=== PATIENT | female | born 1935 | race Caucasian/White ===

== ENCOUNTER 2022-03-19 11:20 | Outpatient (CLI) | payer MEDICARE | END 2022-03-19 11:21 | disposition home or self-care (01) | LOC: SCSRAD 11:20 | PROVIDERS: ATTEND Nurse Practitioner Adult Health | DX: M25.552 Pain in left hip (principal); M16.12 Unilateral primary osteoarthritis, left hip ==

== ENCOUNTER 2022-03-20 14:41 | Outpatient (CLI) | payer MEDICARE | END 2022-03-20 14:42 | disposition home or self-care (01) | LOC: BICMAMMO 14:41 | PROVIDERS: ATTEND Nurse Practitioner Adult Health | DX: Z13.820 Encounter for screening for osteoporosis (principal); Z78.0 Asymptomatic menopausal state; M85.851 Other specified disorders of bone density and structure, right thigh; M85.852 Other specified disorders of bone density and structure, left thigh | CPT/HCPCS: 77080 ==

== ENCOUNTER 2022-11-13 13:04 | Outpatient (CLI) | payer MEDICARE, OTHER | END 2022-11-13 13:05 | disposition home or self-care (01) | LOC: DTY/OP 13:04 | PROVIDERS: ATTEND Internal Medicine | DX: N18.4 Chronic kidney disease, stage 4 (severe) (principal); R63.0 Anorexia; E78.00 Pure hypercholesterolemia, unspecified; R63.4 Abnormal weight loss; E87.5 Hyperkalemia | CPT/HCPCS: 97802 ==

== ENCOUNTER 2023-04-23 12:01 | Emergency (ER) | payer MEDICARE ==
[2023-04-23] MEDS ORDERED: hydrALAZINE 20 MG/ML VIAL ONE (13:13)
[2023-04-23 13:23] LABS: #Eosinphils 0.1 thou/uL (0.0-0.7); #Monocytes 0.6 thou/uL (0.11-0.59); #Neutrophils 6.5 thou/uL (1.40-6.50); %Basophils 0.4 % (0.0-1.0); %Eosinophils 1.5 % (0.0-10.0); %Lymphocytes 8.5 % (21.0-51.0); %Monocytes 7.4 % (0.0-10.0); %Neutrophils 81.8 % (42.0-75.0); Hemoglobin 9.2 g/dL (12.0-16.0); Mean Corpuscular HGB CONC 32.9 g/dL (32.0-36.0); Mean Corpuscular Hemoglobin 30.5 pg (27.0-31.0); Mean Corpuscular Volume 92.7 fl (78.0-98.0); Mean Platelet Volume 9.6 fL (7.4-10.4); Platelet Count 267 10x3/uL (130-400); RBC Distribution Width 13.4 % (11.5-14.5); Red Blood Cell (RBC) Count 3.02 mill/uL (4.20-5.40)
[2023-04-23 13:48] LABS: ALT (SGPT) Less than 7 U/L (8-55); AST (SGOT) 8 U/L (5-34); Albumin 3.8 g/dL (3.4-4.8); Alkaline Phosphatase 48 U/L (40-110); Anion Gap 15 mmol/L (10-20); BUN (Urea Nitrogen) 31 mg/dL (9.8-20.1); Bilirubin, Total 0.3 mg/dL (0.2-1.2); CK (CPK) 49 U/L (29-168); Calc. Creatinine Clearance 0 mL/min (70-130); Calcium 8.8 mg/dL (7.8-10.44); Carbon Dioxide 21 mmol/L (23-31); Chloride 109 mmol/L (98-107); Estimated GFR 22; Globulin 2.2 g/dL (2.4-3.5); Glucose 107 mg/dL (83-110); Sodium 141 mmol/L (136-145)
[2023-04-23 14:09] LABS: CKMB 1.3 ng/mL (0-6.6)
[2023-04-23] MEDS ORDERED: Acetaminophen 500 MG TAB ONE (14:48)
== END 2023-04-23 14:40 | disposition home or self-care (01) ==
LOC: ERS 12:01
DX: I16.0 Hypertensive urgency (principal); N39.0 Urinary tract infection, site not specified; I25.10 Atherosclerotic heart disease of native coronary artery without angina pectoris; K21.9 Gastro-esophageal reflux disease without esophagitis; I13.0 Hypertensive heart and chronic kidney disease with heart failure and stage 1 through stage 4 chronic kidney disease, or unspecified chronic kidney disease; N18.9 Chronic kidney disease, unspecified; E78.5 Hyperlipidemia, unspecified; Z79.899 Other long term (current) drug therapy; Z79.82 Long term (current) use of aspirin
CPT/HCPCS: 71045; 80053; 82550; 82553; 83880; 84484; 85025; 93005; J0360; 36415; 96374

== ENCOUNTER 2023-05-24 11:29 | Outpatient (CLI) | payer MEDICARE | END 2023-05-24 11:30 | disposition home or self-care (01) | LOC: SCSRAD 11:29 | PROVIDERS: ATTEND Nurse Practitioner Family | DX: R10.33 Periumbilical pain (principal) | CPT/HCPCS: 74018; 81001; 87507 ==

== ENCOUNTER 2023-06-20 09:34 | Emergency (ER) | payer MEDICARE ==
[2023-06-20 11:05] LABS: #Monocytes 0.6 thou/uL (0.11-0.59); #Neutrophils 6.1 thou/uL (1.40-6.50); %Basophils 0.3 % (0.0-1.0); %Eosinophils 0.5 % (0.0-10.0); %Lymphocytes 10.5 % (21.0-51.0); %Monocytes 7.5 % (0.0-10.0); %Neutrophils 80.9 % (42.0-75.0); Hematocrit 31.7 % (36.0-47.0); Hemoglobin 10.5 g/dL (12.0-16.0); Mean Corpuscular HGB CONC 33.1 g/dL (32.0-36.0); Mean Corpuscular Hemoglobin 29.5 pg (27.0-31.0); Mean Platelet Volume 9.6 fL (7.4-10.4); Platelet Count 317 10x3/uL (130-400); RBC Distribution Width 14.4 % (11.5-14.5); Red Blood Cell (RBC) Count 3.56 mill/uL (4.20-5.40); White Blood Cell (WBC) Count 7.6 10x3/uL (4.8-10.8)
[2023-06-20 11:31] LABS: ALT (SGPT) Less than 7 U/L (8-55); AST (SGOT) 15 U/L (5-34); Albumin 3.9 g/dL (3.4-4.8); Alkaline Phosphatase 48 U/L (40-110); Anion Gap 18 mmol/L (10-20); BUN (Urea Nitrogen) 47 mg/dL (9.8-20.1); Bilirubin, Total 0.4 mg/dL (0.2-1.2); Calc. Creatinine Clearance 0 mL/min (70-130); Calcium 9.3 mg/dL (7.8-10.44); Carbon Dioxide 21 mmol/L (23-31); Chloride 108 mmol/L (98-107); Estimated GFR 18; Globulin 3.2 g/dL (2.4-3.5); Glucose 111 mg/dL (83-110); Potassium 3.7 mmol/L (3.5-5.1); Protein, Total 7.1 g/dL (5.8-8.1); Sodium 143 mmol/L (136-145)
[2023-06-20] MEDS ORDERED: Morphine 4 MG/ML VIAL ONE (12:16)
[2023-06-20] MEDS ORDERED: Ondansetron PF 4 MG/2 ML Vial ONE (12:17)
[2023-06-20] MEDS ORDERED: Dicyclomine 20 MG/2 ML VIAL ONE (12:17)
[2023-06-20 12:24] LABS: Bacteria/HPF None Seen HPF (None Seen); Bilirubin Negative (Negative); Blood, Urine Negative (Negative); CAUTI Indications for Culture Pelvic or flank pain; Clarity Clear (Clear); Glucose, Urine (Dipstick) Normal (Negative); Ketone, Urine Negative (Negative); Leukocyte 75 Leu/uL (Negative); Nitrite Negative (Negative); Protein, Urine (Dipstick) 200 mg/dL (Neg-Trace); RBC/HPF 0-3 HPF (0-3); Specific Gravity, Urine 1.015 (1.002-1.036); Squamous Epithelial 0-3 HPF (0-3); Urobilinogen Normal mg/dL (Less than 2)
[2023-06-20 12:28] LABS: Urine Culture Reflex Yes Yes
[2023-06-20] MEDS ORDERED: cloNIDine 0.1 MG TAB ONE (13:18)
== END 2023-06-20 14:23 | disposition home or self-care (01) ==
LOC: ERS 09:34
DX: R10.84 Generalized abdominal pain (principal); R06.02 Shortness of breath; K21.9 Gastro-esophageal reflux disease without esophagitis; I50.9 Heart failure, unspecified; I13.0 Hypertensive heart and chronic kidney disease with heart failure and stage 1 through stage 4 chronic kidney disease, or unspecified chronic kidney disease; N18.9 Chronic kidney disease, unspecified; E78.00 Pure hypercholesterolemia, unspecified; Z79.82 Long term (current) use of aspirin; Z79.899 Other long term (current) drug therapy
CPT/HCPCS: 71045; 74176; 80053; 81001; 83605; 83880; 84484; 85025; 87086; 93005; 94760; 96372; 96374; 96375; J2270; J2405

== ENCOUNTER 2023-08-05 16:50 | Emergency (ER) | payer MEDICARE ==
[2023-08-05 17:28] LABS: #Eosinphils 0.1 thou/uL (0.0-0.7); #Monocytes 0.6 thou/uL (0.11-0.59); #Neutrophils 4.6 thou/uL (1.40-6.50); %Basophils 0.3 % (0.0-1.0); %Eosinophils 1.9 % (0.0-10.0); %Lymphocytes 17.1 % (21.0-51.0); %Monocytes 8.9 % (0.0-10.0); %Neutrophils 71.3 % (42.0-75.0); Hematocrit 29.2 % (36.0-47.0); Hemoglobin 9.7 g/dL (12.0-16.0); Mean Corpuscular HGB CONC 33.2 g/dL (32.0-36.0); Mean Corpuscular Volume 90.4 fl (78.0-98.0); Mean Platelet Volume 9.4 fL (7.4-10.4); Platelet Count 281 10x3/uL (130-400); RBC Distribution Width 14.7 % (11.5-14.5); Red Blood Cell (RBC) Count 3.23 mill/uL (4.20-5.40); White Blood Cell (WBC) Count 6.4 10x3/uL (4.8-10.8)
[2023-08-05 18:00] LABS: ALT (SGPT) Less than 7 U/L (8-55); AST (SGOT) 10 U/L (5-34); Albumin 3.9 g/dL (3.4-4.8); Alkaline Phosphatase 61 U/L (40-110); Anion Gap 12 mmol/L (10-20); BUN (Urea Nitrogen) 30 mg/dL (9.8-20.1); Bilirubin, Total 0.3 mg/dL (0.2-1.2); Calc. Creatinine Clearance 0 mL/min (70-130); Calcium 8.7 mg/dL (7.8-10.44); Carbon Dioxide 27 mmol/L (23-31); Chloride 104 mmol/L (98-107); Estimated GFR 24; Globulin 2.1 g/dL (2.4-3.5); Glucose 102 mg/dL (83-110); Lipase 32 U/L (8-78); Potassium 3.9 mmol/L (3.5-5.1); Sodium 139 mmol/L (136-145)
[2023-08-05 18:36] LABS: Bacteria/HPF None Seen HPF (None Seen); Bilirubin Negative (Negative); Blood, Urine Negative (Negative); CAUTI Indications for Culture Pelvic or flank pain; Clarity Clear (Clear); Glucose, Urine (Dipstick) Normal (Negative); Ketone, Urine Negative (Negative); Leukocyte Negative Leu/uL (Negative); Nitrite Negative (Negative); Protein, Urine (Dipstick) 100 mg/dL (Neg-Trace); RBC/HPF 0-3 HPF (0-3); Specific Gravity, Urine 1.012 (1.002-1.036); Squamous Epithelial 0-3 HPF (0-3); Urobilinogen Normal mg/dL (Less than 2); WBC/HPF 0-3 HPF (0-3); pH, Urine 6.5 (5.0-9.0)
[2023-08-05 18:37] LABS: Urine Culture Reflex No No
[2023-08-05] MEDS ORDERED: Morphine 4 MG/ML VIAL ONE (18:50)
[2023-08-05] MEDS ORDERED: Ondansetron PF 4 MG/2 ML Vial ONE (18:51)
[2023-08-05] MEDS ORDERED: cloNIDine 0.1 MG TAB ONE (20:32)
[2023-08-06] MEDS ORDERED: Aspirin Chewable 81 MG TAB ONE (00:02)
[2023-08-06 01:23] LABS: Troponin I 0.027 ng/mL (< 0.028)
== END 2023-08-06 02:19 | disposition short-term general hospital (02) ==
LOC: ERS 16:50
DX: I16.0 Hypertensive urgency (principal); I13.0 Hypertensive heart and chronic kidney disease with heart failure and stage 1 through stage 4 chronic kidney disease, or unspecified chronic kidney disease; N18.9 Chronic kidney disease, unspecified; I50.9 Heart failure, unspecified; R77.8 Other specified abnormalities of plasma proteins; I25.10 Atherosclerotic heart disease of native coronary artery without angina pectoris; K21.9 Gastro-esophageal reflux disease without esophagitis; E78.5 Hyperlipidemia, unspecified; G20.A1 Parkinson's disease without dyskinesia, without mention of fluctuations; Z87.891 Personal history of nicotine dependence; Z79.82 Long term (current) use of aspirin; Z79.899 Other long term (current) drug therapy
CPT/HCPCS: 36415; 51701; 71045; 74176; 80053; 81001; 83605; 83690; 84484; 85025; 93005; 96361; 96374; 96375; J2270; J2405